=== PATIENT | male | born 1980 | race Hispanic/Latino ===

== ENCOUNTER 2021-07-07 03:01 | Emergency (ER) | payer SELFPAY ==
[~2021-07-07] VITALS: Ht 180.3 cm; Wt 124.7 kg
== END 2021-07-07 03:26 | disposition home or self-care (01) ==
LOC: ER 03:05
DX: R10.32 Left lower quadrant pain (principal); R10.31 Right lower quadrant pain; K42.9 Umbilical hernia without obstruction or gangrene; K40.20 Bilateral inguinal hernia, without obstruction or gangrene, not specified as recurrent; G40.909 Epilepsy, unspecified, not intractable, without status epilepticus; G47.30 Sleep apnea, unspecified
CPT/HCPCS: 99282

== ENCOUNTER 2021-07-20 12:19 | Emergency (ER) | payer SELFPAY ==
[~2021-07-20] VITALS: Ht 180.3 cm; Wt 124.7 kg
[2021-07-20 12:42] LABS: BASOPHILS # (AUTO) 0.1 (0.0-0.1); BASOPHILS % 1.4 % (0.0-1.0); EOSINOPHILS # (AUTO) 0.2 (0.0-0.4); EOSINOPHILS % 2.2 % (0.0-6.0); HEMATOCRIT 49.1 % (38.2-49.6); HEMOGLOBIN 15.5 g/dL (14.0-18.0); LYMPHOCYTES # (AUTO) 2.9 (1.0-3.2); LYMPHOCYTES % 27.9 % (18.0-39.1); MEAN CORPUSCULAR HEMOGLOBIN 26.8 pg (28-32); MEAN CORPUSCULAR HGB CONC 31.6 g/dL (31-35); MEAN CORPUSCULAR VOLUME 84.8 fL (81-99); MONOCYTES # (AUTO) 0.6 (0.2-0.8); NEUTROPHILS # (AUTO) 6.3 (2.1-6.9); PLATELET COUNT 300 x10e3/uL (140-360); RED BLOOD COUNT 5.79 x10e6/uL (4.3-5.7); RED CELL DISTRIBUTION WIDTH 14.1 % (11.7-14.4)
[2021-07-20 12:59] LABS: INR 0.87; PROTHROMBIN TIME 12.6 seconds (11.9-14.5)
[2021-07-20 13:00] LABS: PARTIAL THROMBOPLASTIN TIME 35.2 seconds (23.8-35.5)
[2021-07-20 13:11] LABS: AMPHETAMINES SCREEN,URINE NEGATIVE (NEGATIVE); BENZODIAZEPINES SCREEN,URINE NEGATIVE (NEGATIVE); PHENCYCLIDINE SCREEN,URINE NEGATIVE (NEGATIVE)
[2021-07-20 13:11] LABS: ALANINE AMINOTRANSFERASE 32 IU/L (0-55); ALBUMIN 3.4 g/dL (3.5-5.0); ALBUMIN/GLOBULIN RATIO 0.7 (0.8-2.0); ALKALINE PHOSPHATASE 69 IU/L (40-150); ANION GAP 11.8 mmol/L (8-16); BLOOD UREA NITROGEN 11 mg/dL (7-26); BUN/CREATININE RATIO 13 (6-25); CALCIUM 8.5 mg/dL (8.4-10.2); CARBON DIOXIDE 27 mmol/L (22-29); CHLORIDE 104 mmol/L (98-107); CREATINE KINASE 95 IU/L (30-200); CREATININE, SERUM 0.88 mg/dL (0.72-1.25); EST GLOMERULAR FILTRATION RATE 95 ML/MIN (60-); GLUCOSE 102 mg/dL (74-118); POTASSIUM 3.8 mmol/L (3.5-5.1); SODIUM 139 mmol/L (136-145)
[2021-07-20] MEDS ORDERED: ALTEPLASE 50 MG/VIAL (29 MILLION IU) IV ONE (13:30)
[2021-07-20] MEDS ORDERED: ALTEPLASE 100 MG/VIAL IV ONE ×2 (13:30→13:45)
[2021-07-20] MEDS ORDERED: ALTEPLASE 100 MG/VIAL ONE (13:43)
[2021-07-20] MEDS ORDERED: SODIUM CHLORIDE 0.9% 100 ML ONE ×2 (14:46→15:00)
[2021-07-20] MEDS ORDERED: IOPAMIDOL 370 MG/ML 100 ML INFUS..BTL INJ ONE (15:00)
[2021-07-20 15:05] VITALS: BP 138/104
== END 2021-07-20 15:05 | disposition other institution (70) ==
LOC: ER 12:21
DX: R47.81 Slurred speech (principal); I63.9 Cerebral infarction, unspecified; G40.909 Epilepsy, unspecified, not intractable, without status epilepticus; G47.30 Sleep apnea, unspecified; Z20.822 Contact with and (suspected) exposure to COVID-19
CPT/HCPCS: 36415; 70450; 70496; 70498; 71045; 80053; 80164; 80307; 82550; 82553; 82948; 84484; 85025; 85610; 85730; 93005; 99284; J7050; Q9967; U0002

== ENCOUNTER 2023-11-14 17:11 | Emergency (ER) | payer OTHER ==
[~2023-11-14] VITALS: Ht 182.9 cm; Wt 132.0 kg
[~2023-11-14 17:11] MED LIST: ATORVASTATIN CA80 MG PO; LIPITOR20 MG PO; LYRICA100 MG PO; MECLIZINE HCL12.5 MG PO; MELOXICAM7.5 MG PO; VALPROIC A250 MG/5 M PO
[2023-11-14 20:07] VITALS: PULSE 87; RESP 12; TEMP 97.3; O2SAT 97
[2023-11-14] MEDS ORDERED: ULTRAM 50MG50 MG PO (20:10)
== END 2023-11-14 20:12 | disposition home or self-care (01) ==
LOC: ER 17:52
DX: S50.11XA Contusion of right forearm, initial encounter (principal); W18.39XA Other fall on same level, initial encounter; Y92.89 Other specified places as the place of occurrence of the external cause; G40.909 Epilepsy, unspecified, not intractable, without status epilepticus; R73.03 Prediabetes; G47.30 Sleep apnea, unspecified; I69.354 Hemiplegia and hemiparesis following cerebral infarction affecting left non-dominant side
CPT/HCPCS: 70450; 99284